=== PATIENT | female | born 2000 | race Caucasian/White ===

== ENCOUNTER 2025-04-17 10:09 | Emergency (ER) | payer MEDICAID, SELFPAY ==
[2025-04-17 10:10] VITALS: BMI 36.6
[2025-04-17 10:29] VITALS: BP 132/82; PULSE 98; RESP 17; TEMP 36.7; O2SAT 97
[2025-04-17] MEDS: ACETAMINOPHEN 500 MG TABLET 1000 MG PO (11:17)
--- NOTE | 2025-04-17 11:24 | EDNOTE_ITS ---
<Statement entered by Glo Eason MD - 04/17/25 13:35> As co-signing physician, I was present and available for consult prn. I concur with the plan and care as documented by the midlevel provider. Upper Respiratory Inf. RME/HPI General Chief Complaint: Flu Like Symptoms Stated Complaint: I THINK I HAVE THE FLU; 14 WEEKS OB Time Seen by Provider: 04/17/25 10:58 Arrival date/time: 04/17/25 10:09 RME / HPI RME / HPI Narrative: 25-year-old female with a past medical history of tonsillar hypertrophy who is currently 14 weeks with twins presents to the ER complaining of cough congestion sore throat, fever since yesterday. Denies dysphagia, shortness of breath, vomiting, abdominal pain, vaginal bleeding. Related Data Previous Rx's ?Medication ?Instructions ?Recorded amoxicillin 500 mg tablet 500 mg PO Q12H #20 tabs 04/04 08/27 Allergies Allergy/AdvReac Type Severity Reaction Status Date / Time No Known Allergies Allergy Verified 04/17/25 10:12 ED Exam Narrative Physical exam: Constitutional: Patient alert and oriented. Well appearing. No acute distress. Not toxic appearing. Head: Normocephalic, atraumatic. Eyes: Periorbital regions bilaterally normal to inspection. Conjunctiva clear bilaterally. Sclera anicteric bilaterally. Pupils equal, round, reactive to light bilaterally. Extraocular movements intact bilaterally. Ears: External ears normal to inspection bilaterally. No mastoid tenderness bilaterally. EAC without edema or exudate bilaterally. TMs without erythema or bulging. Mouth/Throat: Mucous membranes moist. No stridor or muffled voice. Uvula midline. Rise and fall of soft palate normal. Positive tonsillar edema and erythema bilaterally. No peritonsillar fullness. No trismus. Handling secretions without difficulty. Airway widely patent. Neck: Supple. Trachea midline. No JVD. No nuchal rigidity. No midline tenderness or step-offs. Normal range of motion. Positive anterior cervical lymphadenopathy bilaterally. Respiratory: Normal effort. No accessory muscle use or respiratory distress. Lungs clear to auscultation bilaterally without rhonchi, wheezes, or crackles. Cardiovascular: RRR. Normal S1/S2. No murmurs or rubs. Radial pulses intact bilaterally. Abdomen: Soft. Non-distended. Non-tender throughout. No pulsatile mass. No guarding or rebound. Negative Lara?s sign. Negative McBurney?s point tenderness. Negative Rovsing?s. Back: No midline tenderness or step-offs. No CVA tenderness to palpation bilaterally. Upper Extremities: No gross deformities. Lower Extremities: No gross deformities. No edema or calf tenderness. Neuro: Speech normal. No gross motor or sensory deficits to upper or lower extremities bilaterally. GCS 15. CN II?XII grossly intact. Skin: Warm, dry, normal color. Psych: Normal affect. Cooperative. Normal insight. Course Quality Measures none Orders Category Date Time Status Bedside Influenza A&B Antigen Test NOW Care 04/17/25 11:07 Completed Bedside STREP Test NOW Care 04/17/25 11:06 Completed Acetaminophen Tab [Tylenol ES Tab] Med 04/17/25 11:06 Discontinued 1,000 mg PO X1 ONE Vital Signs Vital signs: Vital Signs Temperature 98.1 F 04/17/25 10:29 Pulse Rate 98 04/17/25 10:29 Respiratory Rate 17 04/17/25 10:29 Blood Pressure 132/82 H 04/17/25 10:29 Pulse Oximetry (%) 97 04/17/25 10:29 Oxygen Delivery Method Room Air 04/17/25 10:29 Upper Respiratory Infection MDM Narrative MDM Narrative:: MDM Suspect: viral URI complicated by acute strep pharyngitis without signs of additional focal bacterial infection indicating tx, 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 No meningeal signs, nuchal rigidity, AMS, focal neuro signs, seizure to suggest meningitis or acute PROGRAM OFFICER infection Plan: strict return precautions advised, supportive tx, amoxicillin, f/u with pmd 1-2 days. Medication side effects and precautions discussed with the pt. At the time of reassessment prior to discharge, the patient remains alert and oriented ?3 with GCS 15. Vitals are normal, pain is controlled, and the patient is tolerating oral intake without nausea or vomiting. The patient is agreeable to discharge and verbalizes understanding of the diagnosis, studies, treatment plan, medications (including side effects/precautions), and strict ER return precautions as discussed in the ED. All concerns were addressed, and the patient is comfortable with the plan. Patient data External records reviewed:: [facility] previous records Clinical information provided by:: patient Social determinants that could affect healthcare access:: none Patient has the following chronic illnesses:: As noted How is presenting disease/condition affected by chronic disease/condition?: uneffected by Evaluation data The following diagnostics were reviewed and interpreted by me:: other (specify) Lab and/or radiology exams considered but not ordered:: Additional Labs and radiology considered, but not ordered as they were not clinically indicated at this time. Interpretation Summary: Strep positive, influenza negative Medications / Prescriptions Medications or Prescriptions considered but not ordered:: I ordered medications based on the patient?s clinical needs and assessment, as documented in the chart. For medications not prescribed, they were not indicated for the patient's current condition, and I determined they were unnecessary at this time to avoid potential risks or complications. Medication administrations:: Medication Administration History Discontinued Medications Acetaminophen (Acetaminophen 500 Mg Tablet) 1,000 mg PO X1 ONE Stop: 04/17/25 11:07 Last Admin: 04/17/25 11:17 Dose: 1,000 mg Documented By: GM As noted Consultations Consultation(s) initiated? (list below): No Diagnosis Upper Respiratory Differential Diagnosis: upper respiratory infection, otitis media and sinusitis Most likely diagnosis given after review of the tests above:: Strep pharyngitis Admission Indicated Admission indicated?: not indicated Admission Request Was there a request for admission?: No Disposition Plan Disposition Plan: Discharge Discharge Attestation Discharge Attestation: The patient and all family members were given an opportunity to ask questions and understood the discharge instructions. Discharge instructions specifically effects, indications for sooner follow up or return to the emergency department, and the expected course of current diagnosis. Patient condition: Stable Discharge Plan Plan Patient Disposition: HOME (Self Care) Patient condition on transfer: Stable Prescriptions/Referrals Prescriptions/Med Rec: New amoxicillin 500 mg tablet 500 mg PO Q12H Qty: 20 0RF Referrals: Craig Gil MD [Primary Care Provider] - In 1 week Problem List Clinical Impression: Pharyngitis Patient/Caregiver Discharge Instructions Education Materials: ED Pharyngitis, Report Pending Additional Instructions: You have strep throat. Follow up with your primary medical doctor within 24 hours. Return to the Emergency Room immediately for any new, worsening, continuing symptoms or any concerns at all. Return to the Emergency Room within 24 hours if you are unable to follow up with your primary medical doctor within 24 hours. Print Language: Lithuanian Stand Alone Forms: [employer] Award Info., Patient Portal Info Letter PA/[facility] Supervising Physician PA/[employer] [employer] Supervising Physician: Dr. EASON
== END 2025-04-17 13:01 | disposition home or self-care (01) ==
PROVIDERS: Emergency Provider Emergency Medicine; PCP Student in an Organized Health Care Education/Training Program
DX: O99.512 Diseases of the respiratory system complicating pregnancy, second trimester (principal); J02.9 Acute pharyngitis, unspecified; O30.002 Twin pregnancy, unspecified number of placenta and unspecified number of amniotic sacs, second trimester; Z3A.14 14 weeks gestation of pregnancy
CPT/HCPCS: 87502; 87651; 99282; A9270